=== PATIENT | male | born 1965 | race Caucasian/White ===

== ENCOUNTER 2023-05-16 08:28 | Emergency (ER) | payer BC ==
[2023-05-16 08:40] VITALS: BP 158/98; PULSE 94; RESP 20; TEMP 99.1; BMI 31.1
[2023-05-16] MEDS ORDERED: ACETAMINOPHEN 325 MG TABLET (FP) ONE (09:12)
[2023-05-16] MEDS: ACETAMINOPHEN 325 MG TABLET (FP) PO ONE (09:17)
== END 2023-05-16 10:14 | disposition home or self-care (01) ==
LOC: FER 08:28
DX: R09.81 Nasal congestion (principal); J02.9 Acute pharyngitis, unspecified; J11.1 Influenza due to unidentified influenza virus with other respiratory manifestations; Z20.822 Contact with and (suspected) exposure to COVID-19
CPT/HCPCS: 0241U-QW; 93005; 99284-25